=== PATIENT | male | born 1955 | race African-American/Black ===

== ENCOUNTER 2017-04-21 22:09 | Emergency (ER) | payer MEDICARE ==
[2017-04-21] MEDS ORDERED: DIPHENHYDRAMINE HCL 50 MG/ML VIAL IV ONE (23:29)
[2017-04-21] MEDS ORDERED: FAMOTIDINE INJ/PF 20 MG/2 ML SDV IV ONE (23:30)
[2017-04-21] MEDS ORDERED: METHYLPREDNISOLONE INJ 125 MG/2 ML SDV IV ONE (23:30)
--- NOTE | 2017-04-21 23:35 | ER Document Report ---
ED General - General Chief Complaint: Facial Swelling Stated Complaint: ALLERGIC REACTION Time Seen by Provider: 04/21/17 23:23 Notes: Patient is a 62-year-old male who presents with complaint of face swelling. He is on a JYOTI inhibitor. He takes benazepril. His been on this for some time. He has had no rash or hives. He says that he has had slight itching in his hands. No itching in his mouth face or tongue. He says he has slight difficulty swallowing. No recent fevers or infections. This is never happened before. No other complaints at this time. TRAVEL OUTSIDE OF THE [place] IN LAST 30 DAYS: No Past Medical History - Social History Smoking Status: Unknown if Ever Smoked Frequency of alcohol use: None Drug Abuse: None Family History: Reviewed & Not Pertinent Patient has suicidal ideation: No Patient has homicidal ideation: No Renal/ Medical History: Denies: Hx Peritoneal Dialysis Review of Systems - Review of Systems Notes: My Normal Review Basic REVIEW OF SYSTEMS: CONSTITUTIONAL : Denies fever, chills, or sweats. Denies recent illness. EENT: lip and tongue swelling CARDIOVASCULAR: Denies chest pain. RESPIRATORY: Denies cough, cold, or chest congestion. Mild shortness of breath. GASTROINTESTINAL: Denies abdominal pain. Denies nausea, vomiting, or diarrhea. Denies constipation. Last BM: MUSCULOSKELETAL: Denies neck or back pain or joint pain or swelling. SKIN: Denies rash or skin lesions. NEUROLOGICAL: Denies altered mental status or loss of consciousness. Denies headache. Denies weakness or paralysis or loss of use of either side. Denies problems with gait or speech. Denies sensory or motor loss. ALL OTHER SYSTEMS REVIEWED AND NEGATIVE. Physical Exam - Vital signs Vitals: Temp Pulse Resp BP Pulse Ox 97.6 F 7 L 20 157/113 H 98 04/21/17 23:06 04/21/17 23:06 04/21/17 23:06 04/21/17 23:06 04/21/17 23:06 - Notes Notes: General Appearance: Well nourished, alert, cooperative, no acute distress, no obvious discomfort. Speaking full sentences. No stridor. No difficulty breathing on exam. Vitals: reviewed, See vital signs table. Head: no swelling or tenderness to the head Eyes: PERRL, EOMI, Conjuctiva clear Mouth: No decreasd moisture Throat: No pharyngeal swelling. Mild tongue swelling. Some upper and lower lip swelling. Neck: Supple, no neck tenderness, Lungs: No wheezing, No rales, No rhonci, No accessory muscle use, good air exchange bilaterally. Heart: Normal rate, Regular rythm, No murmur, no rub Abdomen: Normal BS, soft, No rigidity, No abdominal tenderness, No guarding, no rebound, no abdominal masses, no organomegaly Extremities: strength 5/5 in all extremities, good pulses in all extremities, no swelling or tenderness in the extremities, no edema. Skin: warm, dry, appropriate color, no rash or hives Neuro: speech clear, oriented x 3, normal affect, responds appropriately to questions. Course - Re-evaluation Re-evalutation: 04/22/17 01:19 Patient's facial swelling has remained the same and is unchanged. He is not currently having any difficulty breathing. no stridor. No hoarseness of voice. No new increased swelling of the tongue or lips. - Vital Signs Vital signs: Temp Pulse Resp BP Pulse Ox 97.6 F 7 L 13 155/105 H 95 04/21/17 23:06 04/21/17 23:06 04/22/17 00:30 04/22/17 00:30 04/22/17 00:30 - Laboratory Result Diagrams: 04/21/17 23:49 04/21/17 23:49 Laboratory results interpreted by me: 04/21/17 23:49 RDW 14.4 H
[2017-04-22 00:21] LABS: ABSOLUTE EOSINOPHILS # (AUTO) 0.1 10^3/uL (0.0-0.6); ABSOLUTE LYMPHOCYTES (AUTO) 1.6 10^3/uL (0.5-4.7); ABSOLUTE MONOCYTES (AUTO) 0.3 10^3/uL (0.1-1.4); BASOPHILS % (AUTO) 0.5 % (0-2); EOSINOPHILS % (AUTO) 1.2 % (0-6); HEMATOCRIT 46.2 % (37.9-51.0); HEMOGLOBIN 15.5 g/dL (13.5-17.0); HGB HCT DIFFERENCE 0.3; LYMPHOCYTES % (AUTO) 27.4 % (13-45); MEAN CORPUSCULAR HGB CONC 33.5 g/dL (32.0-36.0); MEAN CORPUSCULAR VOLUME 86 fl (80-97); MONOCYTES % (AUTO) 5.2 % (3-13); RED BLOOD COUNT 5.35 10^6/uL (4.35-5.55); RED CELL DISTRIBUTION WIDTH 14.4 % (11.5-14.0); SEGMENTED NEUTROPHILS % (AUTO) 65.7 % (42-78)
[2017-04-22 00:36] LABS: ANION GAP 8 (5-19); BLOOD UREA NITROGEN 16 mg/dL (7-20); CALCIUM 9.3 mg/dL (8.4-10.2); CARBON DIOXIDE 30 mmol/L (22-30); CHLORIDE 105 mmol/L (98-107); CREATININE RESULT 1.05 mg/dL (0.52-1.25); GLUCOSE 97 mg/dL (75-110); POTASSIUM 3.9 mmol/L (3.6-5.0); SODIUM 143.4 mmol/L (137-145)
[2017-04-22] MEDS: NORMAL SALINE 250 ML IV PRN ×2 (04:04→06:25)
[2017-04-22 06:43] VITALS: BP 149/102
== END 2017-04-22 06:48 | disposition home or self-care (01) ==
LOC: ER 22:09
DX: T78.3XXA Angioneurotic edema, initial encounter (principal); R22.0 Localized swelling, mass and lump, head
CPT/HCPCS: 99284; 96361; 96374; 96375; 86900; 86901; 36415; 36430; 86850; 85025; 80048; P9017; J1200; J2930; J7050; S0028

== ENCOUNTER 2018-03-23 06:38 | Emergency (ER) | payer MEDICARE ==
[2018-03-23] MEDS ORDERED: CLONIDINE HCL 0.2 MG TABLET PO ONE (07:18)
[2018-03-23] MEDS ORDERED: OXYMETAZOLINE HCL 0.05% NASAL SPRAY 15 ML BOTTLE NASL ONE (07:18)
[2018-03-23 09:38] VITALS: BP 126/108
--- NOTE | 2018-03-23 09:52 | ER Document Report ---
ED Head/Face/Scalp Injury - General Chief Complaint: Nose Bleed Stated Complaint: NOSE BLEED Time Seen by Provider: 03/23/18 07:05 Mode of Arrival: Ambulatory Information source: Patient Notes: Patient is a 62-year-old male who presents to the ER today for that started at 2 AM last night, stopped after approximately 10 minutes and he went back to sleep, started again at around 6 a.m. this morning. Patient states that he is holding gauze to his nose but the bleeding has not stopped since. Patient has no history of nosebleeds, does have a history of hypertension, takes 4 different medications and has not taken them yet today. He denies any headache , injury. TRAVEL OUTSIDE OF THE [place] IN LAST 30 DAYS: No - Related Data Allergies/Adverse Reactions: No Known Allergies Allergy (Verified 04/22/17 01:59) Past Medical History - General Information source: Patient - Social History Smoking Status: Never Smoker Family History: Reviewed & Not Pertinent Patient has suicidal ideation: No Patient has homicidal ideation: No - Past Medical History Cardiac Medical History: Reports: Hx Hypertension Renal/ Medical History: Denies: Hx Peritoneal Dialysis Past Surgical History: Reports: Hx Abdominal Surgery - hernia - Immunizations Hx Diphtheria, Pertussis, Tetanus Vaccination: - unknown Review of Systems - Review of Systems Constitutional: No symptoms reported EENT: See HPI Cardiovascular: See HPI Respiratory: No symptoms reported Gastrointestinal: No symptoms reported Genitourinary: No symptoms reported Male Genitourinary: No symptoms reported Musculoskeletal: No symptoms reported Skin: No symptoms reported Hematologic/Lymphatic: No symptoms reported Neurological/Psychological: No symptoms reported Physical Exam - Vital signs Vitals: Temp Pulse Resp BP Pulse Ox 97.7 F 86 18 166/128 H 96 03/23/18 06:44 03/23/18 06:44 03/23/18 06:44 03/23/18 06:44 03/23/18 06:44 - Notes Notes: PHYSICAL EXAMINATION: GENERAL: Holding gauze over nose with dried blood on face and gauze, but in no acute distress. HEAD: Dried blood on face but otherwise atraumatic, normocephalic. EYES: Pupils equal round and reactive to light, extraocular movements intact, sclera anicteric, conjunctiva are normal. ENT: ear canals without erythema or foreign body, TMs pearly zimmerman with good bony landmarks, right near patent, left nare with bright red blood coming from, oropharynx clear without exudates. Moist mucous membranes. Airway patent NECK: Normal range of motion, supple without lymphadenopathy LUNGS: CTAB and equal. No wheezes rales or rhonchi. HEART: Regular rate and rhythm without murmurs EXTREMITIES: Normal range of motion, no pitting edema. No cyanosis. NEUROLOGICAL: Cranial nerves grossly intact. Normal sensory/motor exams. PSYCH: Normal mood, normal affect. SKIN: Warm, Dry, normal turgor, no rashes or lesions noted Course - Re-evaluation Re-evalutation: 03/23/18 09:39 Blood pressure on arrival is 164/112, patient was given his normal blood pressure medications and that did improve to 124/96 prior to discharge. Afrin was applied to the left nostril and cotton balls soaked in Afrin were left in the left nostril for approximately 20 minutes 2, patient did cough up a large blood clot after this and there was no more bleeding, patient was watched for over 2 hours after bleeding had stopped and no more bleeding occurred. Patient to return if symptoms worsen but at this time stable for discharge. - Vital Signs Vital signs: Temp Pulse Resp BP Pulse Ox 98.2 F 71 18 126/108 H 97 03/23/18 09:57 03/23/18 09:57 03/23/18 09:57 03/23/18 09:31 03/23/18 09:57 Procedures - Nosebleed Procedure Left Time completed: 09:20 Location: Anterior Supplies used: Other - cotton balls soaked in Afrin Notes: Patient tolerated well, cotton balls were placed 2, no more bleeding occurred Discharge - Discharge Clinical Impression: Nosebleed HTN (hypertension) Qualifiers: Hypertension type: essential hypertension Qualified Code(s): I10 - Essential ( primary) hypertension Condition: Stable Disposition: HOME, SELF-CARE Additional Instructions: Return immediately for any new or worsening symptoms. Follow up with primary care provider, call tomorrow to make followup appointment.
== END 2018-03-23 10:01 | disposition home or self-care (01) ==
LOC: ER 06:38
PROC: 2Y41X5Z Packing of Nasal Region using Packing Material (ICD-10-PCS; principal; 2018-03-23)
DX: R04.0 Epistaxis (principal); I10 Essential (primary) hypertension; Z79.899 Other long term (current) drug therapy
CPT/HCPCS: 30901; 99283; A9270; J3490